=== PATIENT | male | born 1985 | race Caucasian/White ===

== ENCOUNTER 2016-10-21 17:04 | Inpatient (IN) | payer MEDICAID ==
[~2016-10-21] VITALS: Ht 172.7 cm; Wt 66.1 kg
[~2016-10-21 17:04] MED LIST: FAMO20TA7 PO; FOLI-17 PO; HYDR-3240 PO; MULT-6 PO; OMEP40CA3 PO; THIA100T6 PO
[2016-10-21] MEDS ORDERED: ONDANSETRON 2MG/ML, 2ML IVPush ONE (18:00)
[2016-10-21] MEDS ORDERED: FAMOTIDINE 20 MG/2 ML IVP ONE (18:00)
[2016-10-21] MEDS ORDERED: SODIUM CHLORIDE 0.9% 1,000 ML IV ONE ×2 (18:07→20:33)
[2016-10-21] MEDS ORDERED: SODIUM CHLORIDE 0.9% 1,000ML IVBOLUS ONE (18:30)
[2016-10-21] MEDS ORDERED: SODIUM CHLORIDE FLUSH 10ML SYR IVF ONE (18:30)
[2016-10-21] MEDS ORDERED: ONDANSETRON 2MG/ML, 2ML ONE (18:34)
[2016-10-21] MEDS ORDERED: FAMOTIDINE 20 MG/2 ML ONE (18:35)
[2016-10-21 18:46] LABS: HEMOGLOBIN 15.1 g/dL (13.7-18.0)
[2016-10-21 18:57] LABS: ASPARTATE AMINO TRANSFERASE 59 U/L (15-37); BLOOD UREA NITROGEN 13 mg/dL (7-18)
[2016-10-21] MEDS ORDERED: SERT100T PO (19:06)
[2016-10-21] MEDS ORDERED: HYDROmorphone 1 MG/ML, 1ML ONE ×2 (19:20→20:41)
[2016-10-21 19:22] LABS: DIFF TOTAL CELLS COUNTED 100 CELL DIFF
[2016-10-21] MEDS ORDERED: LORazepam 2 MG/ML, 1ML ONE (19:22)
[2016-10-21 19:24] LABS: VERIFY COUNTS? YES
[2016-10-21] MEDS: HYDROmorphone 1 MG/ML, 1ML IVPush PRN ×2 (19:27→20:43)
[2016-10-21] MEDS ORDERED: LORazepam 2 MG/ML, 1ML IVPush PRN ×2 (19:30→21:00)
[2016-10-21] MEDS ORDERED: THIAMINE 100 MG in SODIUM CHLORIDE 0.9% 50 ML IVPB ONE (19:30)
[2016-10-21] MEDS ORDERED: OMNIPAQUE 350 MG/ML, 100ML BOTTLE ONE (20:05)
[2016-10-21] MEDS: SODIUM CHLORIDE 0.9% 1,000 ML IV SCH (20:51)
[2016-10-21] MEDS ORDERED: BISACODYL 10 MG SUPP PR PRN (21:00)
[2016-10-21] MEDS ORDERED: HYDROmorphone 1 MG/ML, 1ML IVPush PRN (21:00)
[2016-10-21] MEDS ORDERED: SODIUM CHLORIDE FLUSH 10ML SYR IVF PRN (21:00)
[2016-10-21] MEDS ORDERED: ONDANSETRON 2MG/ML, 2ML IVPush PRN (21:00)
[2016-10-21 23:10] VITALS: BP 159/96
[2016-10-21] MEDS: MORPHINE SULFATE 4 MG/ML, 1ML IVPush PRN (23:33)
[2016-10-21] MEDS: POTASSIUM CHLORIDE 20 MEQ, MAGNESIUM SULFATE 2 GM, THIAMINE 100 MG, MVI ADULT 10 ML, FO... IV SCH (23:33)
[2016-10-22 01:13] VITALS: BP 132/91
[2016-10-22] MEDS: ONDANSETRON 2MG/ML, 2ML IVP PRN ×4 (01:27→20:53)
[2016-10-22] MEDS: MORPHINE SULFATE 4 MG/ML, 1ML IVPush PRN ×7 (01:27→23:07)
[2016-10-22] MEDS: HEPARIN 5,000 UNITS/ML, 1ML SQ SCH ×3 (01:28→20:03)
[2016-10-22] MEDS: NICOTINE 14MG/24 HR PATCH.TD24 TD SCH ×2 (01:30→20:55)
[2016-10-22] MEDS: SODIUM CHLORIDE 0.9% 1,000 ML IV SCH ×3 (02:34→20:53)
[2016-10-22 04:26] LABS: HEMOGLOBIN 15.5 g/dL (13.7-18.0)
[2016-10-22 04:38] LABS: BLOOD UREA NITROGEN 12 mg/dL (7-18)
[2016-10-22 04:42] LABS: ASPARTATE AMINO TRANSFERASE 51 U/L (15-37)
[2016-10-22] MEDS: LORazepam 2 MG/ML, 1ML IVPush PRN ×2 (08:09→21:31)
[2016-10-22 08:58] VITALS: BP 155/112
[2016-10-22 13:40] VITALS: BP 142/104
[2016-10-22 17:30] VITALS: BP 110/69
[2016-10-22 17:59] VITALS: BP 117/71
[2016-10-22 18:52] VITALS: BP 124/85
[2016-10-22] MEDS: POTASSIUM CHLORIDE 20 MEQ, MAGNESIUM SULFATE 2 GM, THIAMINE 100 MG, MVI ADULT 10 ML, FO... IV SCH (23:08)
[2016-10-23 00:54] VITALS: BP 140/91
[2016-10-23] MEDS: MORPHINE SULFATE 4 MG/ML, 1ML IVPush PRN ×5 (01:58→20:51)
[2016-10-23] MEDS: LORazepam 2 MG/ML, 1ML IVPush PRN ×4 (03:12→20:50)
[2016-10-23] MEDS: ONDANSETRON 2MG/ML, 2ML IVP PRN ×2 (03:12→13:36)
[2016-10-23] MEDS: SODIUM CHLORIDE 0.9% 1,000 ML IV SCH ×3 (03:31→20:47)
[2016-10-23 05:37] LABS: HEMOGLOBIN 15.6 g/dL (13.7-18.0)
[2016-10-23 06:05] LABS: ASPARTATE AMINO TRANSFERASE 49 U/L (15-37); BLOOD UREA NITROGEN 16 mg/dL (7-18)
[2016-10-23] MEDS: HEPARIN 5,000 UNITS/ML, 1ML SQ SCH ×3 (06:25→20:48)
[2016-10-23 08:33] VITALS: BP 136/96
[2016-10-23] MEDS: POTASSIUM CHLORIDE 20 MEQ, MAGNESIUM SULFATE 2 GM, THIAMINE 100 MG, MVI ADULT 10 ML, FO... IV SCH (09:16)
[2016-10-23 15:45] VITALS: BP 132/94
[2016-10-23 20:13] VITALS: BP 134/88
[2016-10-23] MEDS: NICOTINE 14MG/24 HR PATCH.TD24 TD SCH (20:50)
[2016-10-24] MEDS: POTASSIUM CHLORIDE 20 MEQ, MAGNESIUM SULFATE 2 GM, THIAMINE 100 MG, MVI ADULT 10 ML, FO... IV SCH (00:21)
[2016-10-24] MEDS: MORPHINE SULFATE 4 MG/ML, 1ML IVPush PRN ×3 (00:21→07:47)
[2016-10-24] MEDS: LORazepam 2 MG/ML, 1ML IVPush PRN ×2 (00:21→04:02)
[2016-10-24 03:02] VITALS: BP 115/76
[2016-10-24 04:52] LABS: HEMOGLOBIN 12.3 g/dL (13.7-18.0)
[2016-10-24 05:16] LABS: ASPARTATE AMINO TRANSFERASE 68 U/L (15-37); BLOOD UREA NITROGEN 14 mg/dL (7-18)
[2016-10-24] MEDS: HEPARIN 5,000 UNITS/ML, 1ML SQ SCH ×3 (06:29→21:08)
[2016-10-24 08:02] VITALS: BP 129/81
[2016-10-24] MEDS: SODIUM CHLORIDE 0.9% 1,000 ML IV SCH (11:59)
[2016-10-24] MEDS: LACTATED RINGERS 1,000 ML IV SCH (13:40)
[2016-10-24] MEDS: HYDROcodone/APAP 5/325 TABLET PO PRN ×3 (13:43→20:37)
[2016-10-24 14:01] VITALS: BP 133/79
[2016-10-24] MEDS ORDERED: OMNIPAQUE 350 MG/ML, 100ML BOTTLE ONE (18:05)
[2016-10-24] MEDS: ONDANSETRON 2MG/ML, 2ML IVP PRN (18:31)
[2016-10-24 19:23] VITALS: BP 132/78
[2016-10-24] MEDS: NICOTINE 14MG/24 HR PATCH.TD24 TD SCH (20:37)
[2016-10-24] MEDS ORDERED: POTASSIUM CHLORIDE 20 MEQ, MAGNESIUM SULFATE 2 GM, THIAMINE 100 MG, MVI ADULT 10 ML, FO... IV SCH (23:00)
[2016-10-25] MEDS: LACTATED RINGERS 1,000 ML IV SCH ×4 (00:30→23:03)
[2016-10-25] MEDS: HYDROcodone/APAP 5/325 TABLET PO PRN ×4 (00:44→20:00)
[2016-10-25 02:20] VITALS: BP 110/69
[2016-10-25] MEDS: HEPARIN 5,000 UNITS/ML, 1ML SQ SCH ×3 (05:25→21:21)
[2016-10-25 06:18] LABS: HEMOGLOBIN 10.6 g/dL (13.7-18.0)
[2016-10-25 06:32] LABS: ASPARTATE AMINO TRANSFERASE 81 U/L (15-37); BLOOD UREA NITROGEN 9 mg/dL (7-18)
[2016-10-25 06:40] VITALS: BP 150/85
[2016-10-25 07:27] LABS: DIFF TOTAL CELLS COUNTED 100 CELL DIFF
[2016-10-25 07:29] LABS: VERIFY COUNTS? YES
[2016-10-25] MEDS: MORPHINE SULFATE 4 MG/ML, 1ML IVPush PRN ×2 (09:10→16:25)
[2016-10-25] MEDS ORDERED: LORazepam 1MG TABLET PO PRN (12:00)
[2016-10-25 12:59] VITALS: BP 146/84
[2016-10-25 20:16] VITALS: BP 128/80
[2016-10-25] MEDS: NICOTINE 14MG/24 HR PATCH.TD24 TD SCH (21:21)
[2016-10-26] MEDS: HYDROcodone/APAP 5/325 TABLET PO PRN ×3 (00:20→11:12)
[2016-10-26 02:43] VITALS: BP 145/76
[2016-10-26] MEDS: HEPARIN 5,000 UNITS/ML, 1ML SQ SCH (05:59)
[2016-10-26 06:45] VITALS: BP 126/77
[2016-10-26] MEDS: LACTATED RINGERS 1,000 ML IV SCH (08:47)
[2016-10-26] MEDS ORDERED: LORA-446 PO (10:23)
[2016-10-26] MEDS ORDERED: ONDA4TAB10 PO (10:23)
[2016-10-26] MEDS ORDERED: HYDR-3240 PO (10:23)
[2016-10-26 11:15] VITALS: BP 158/78
[2016-10-26] MEDS ORDERED: FLU VACC QS2016-17 (36MOS+)UP/PF 0.5 ML IM-VACC ONE (12:30)
== END 2016-10-26 13:32 | disposition home or self-care (01) | DRG 438 ==
LOC: ED 21:59 → EDIP 22:05 → 4NOR 22:33 → DCLOUNGE 10-26 13:17
PROC: 0T9B70Z Drainage of Bladder with Drainage Device, Via Natural or Artificial Opening (ICD-10-PCS; principal; 2016-10-21)
DX: K85.20 Alcohol induced acute pancreatitis without necrosis or infection (principal); E43 Unspecified severe protein-calorie malnutrition; F10.239 Alcohol dependence with withdrawal, unspecified; E87.1 Hypo-osmolality and hyponatremia; R65.10 Systemic inflammatory response syndrome (SIRS) of non-infectious origin without acute organ dysfunction; K70.10 Alcoholic hepatitis without ascites; Z82.49 Family history of ischemic heart disease and other diseases of the circulatory system; F32.9 Major depressive disorder, single episode, unspecified; K59.00 Constipation, unspecified; D64.9 Anemia, unspecified; Z68.22 Body mass index [BMI] 22.0-22.9, adult; Z72.0 Tobacco use
CPT/HCPCS: 36415; 71010; 71275; 74177; 76700; 80053; 80307; 81003; 83605; 83690; 84478; 85025; 87324; 90686; 93005; 96361; 96365; 96375; 96376; J1170; J1644; J2405; J3411; J3475; J3480; J7042; Q9967; J2060; J7030; J7120; S0028

== ENCOUNTER 2017-07-02 16:09 | Inpatient (IN) | payer MEDICAID, OTHER ==
[~2017-07-02] VITALS: Ht 175.3 cm; Wt 53.7 kg
[~2017-07-02 16:09] MED LIST changes: +LORA-446 PO; +ONDA4TAB10 PO; +SERT100T PO
[2017-07-02] MEDS ORDERED: SODIUM CHLORIDE 0.9% 1,000 ML IV ONE ×2 (18:11→19:26)
[2017-07-02] MEDS ORDERED: PANTOPRAZOLE 80 MG in SODIUM CHLORIDE 0.9% 50 ML IVPB ONE (18:11)
[2017-07-02] MEDS ORDERED: morphine SULFATE 10 MG/ML, 1ML ONE ×2 (18:16→19:23)
[2017-07-02] MEDS ORDERED: PANTOPRAZOLE 40 MG IV ONE (18:16)
[2017-07-02] MEDS ORDERED: ONDANSETRON 2MG/ML, 2ML ONE (18:16)
[2017-07-02] MEDS: MORPHINE SULFATE 4 MG/ML, 1ML IVPush PRN ×2 (18:19→19:25)
[2017-07-02] MEDS ORDERED: ONDANSETRON 2MG/ML, 2ML IVPush ONE (18:30)
[2017-07-02] MEDS ORDERED: SODIUM CHLORIDE 0.9% 1,000ML IVBOLUS ONE ×2 (18:30→19:30)
[2017-07-02] MEDS ORDERED: SODIUM CHLORIDE FLUSH 10ML SYR IVF ONE (18:30)
[2017-07-02 18:37] LABS: HEMOGLOBIN 14.7 g/dL (13.7-18.0); WHITE BLOOD COUNT 12.5 x10^3/uL (3.4-10)
[2017-07-02 18:48] LABS: ASPARTATE AMINO TRANSFERASE 35 U/L (15-37); BLOOD UREA NITROGEN 14 mg/dL (7-18)
[2017-07-02] MEDS ORDERED: SODIUM CHLORIDE FLUSH 10ML SYR IVF PRN (19:30)
[2017-07-02] MEDS ORDERED: LORazepam 1MG TABLET PO PRN ×2 (20:00)
[2017-07-02] MEDS ORDERED: LORazepam 0.5MG TABLET PO PRN (20:00)
[2017-07-02] MEDS ORDERED: ACETAMINOPHEN 325 MG TABLET PO PRN (20:00)
[2017-07-02] MEDS ORDERED: ONDANSETRON 2MG/ML, 2ML IVPush PRN (20:00)
[2017-07-02] MEDS ORDERED: LORazepam 2 MG/ML, 1ML IV PRN ×3 (20:00)
[2017-07-02] MEDS ORDERED: POLYETHYLENE GLYCOL 17 GM PACKET PO PRN (20:00)
[2017-07-02] MEDS ORDERED: DOCUSATE 100 MG CAPSULE PO PRN (20:00)
[2017-07-02] MEDS ORDERED: CEFTRIAXONE PMX 1GM/50ML 50 ML IV SCH (20:30)
[2017-07-02] MEDS: HYDROmorphone 2 MG/ML, 1ML IVPush PRN (20:52)
[2017-07-02 20:54] VITALS: BP 131/73
[2017-07-02] MEDS ORDERED: FAMOTIDINE 20 MG TABLET PO SCH (21:00)
[2017-07-02] MEDS: ENOXAPARIN 40 MG/0.4 ML SQ SCH (21:00)
[2017-07-02] MEDS: POTASSIUM CHLORIDE 20 MEQ in SODIUM CHLORIDE 0.9% 1,000 ML IV SCH (22:59)
[2017-07-03] MEDS: METRONIDAZOLE PMX 500MG/100ML 100 ML IV SCH ×2 (00:01→07:30)
[2017-07-03] MEDS: HYDROmorphone 2 MG/ML, 1ML IVPush PRN ×9 (00:01→19:33)
[2017-07-03 00:22] VITALS: BP 118/72
[2017-07-03 04:02] LABS: HEMATOCRIT 33.5 % (39.2-51.8); HEMOGLOBIN 11.4 g/dL (13.7-18.0); WHITE BLOOD COUNT 10.9 x10^3/uL (3.4-10)
[2017-07-03 04:09] LABS: BLOOD UREA NITROGEN 15 mg/dL (7-18)
[2017-07-03 04:16] LABS: ASPARTATE AMINO TRANSFERASE 25 U/L (15-37)
[2017-07-03] MEDS: POTASSIUM CHLORIDE 20 MEQ in SODIUM CHLORIDE 0.9% 1,000 ML IV SCH (07:00)
[2017-07-03] MEDS: SENNA/DOCUSATE TABLET PO SCH ×2 (07:51→09:00)
[2017-07-03] MEDS: OXYcodone IR 5MG TABLET PO PRN (07:51)
[2017-07-03] MEDS ORDERED: LACTATED RINGERS 1,000 ML IV SCH (08:00)
[2017-07-03 08:39] VITALS: BP 142/83
[2017-07-03] MEDS ORDERED: THIAMINE 100MG TABLET PO SCH (09:00)
[2017-07-03] MEDS ORDERED: FOLIC ACID 1 MG TABLET PO SCH (09:00)
[2017-07-03] MEDS ORDERED: MULTIVITAMIN 1 TABLET PO SCH (09:00)
[2017-07-03] MEDS ORDERED: HYDROmorphone 1 MG/ML, 1ML ONE ×2 (09:28→11:55)
[2017-07-03] MEDS: POTASSIUM CHLORIDE 20 MEQ, MAGNESIUM SULFATE 1 GM, MVI ADULT 10 ML, THIAMINE 100 MG, FO... IV SCH (10:09)
[2017-07-03 14:00] VITALS: BP 138/82
[2017-07-03] MEDS: POTASSIUM CHLORIDE 20 MEQ in LACTATED RINGERS 1,000 ML IV SCH (19:33)
[2017-07-03 19:52] VITALS: BP 128/76
[2017-07-03] MEDS: ENOXAPARIN 40 MG/0.4 ML SQ SCH (21:00)
[2017-07-04] MEDS: HYDROmorphone 2 MG/ML, 1ML IVPush PRN ×5 (01:44→21:42)
[2017-07-04 01:50] VITALS: BP 144/82
[2017-07-04] MEDS: POTASSIUM CHLORIDE 20 MEQ in LACTATED RINGERS 1,000 ML IV SCH ×3 (02:38→18:24)
[2017-07-04 05:24] LABS: HEMATOCRIT 32.4 % (39.2-51.8); HEMOGLOBIN 11.1 g/dL (13.7-18.0); WHITE BLOOD COUNT 7.9 x10^3/uL (3.4-10)
[2017-07-04 05:26] LABS: BLOOD UREA NITROGEN 13 mg/dL (7-18)
[2017-07-04 05:34] LABS: ASPARTATE AMINO TRANSFERASE 20 U/L (15-37)
[2017-07-04 08:00] VITALS: BP 135/80
[2017-07-04] MEDS: SENNA/DOCUSATE TABLET PO SCH (08:56)
[2017-07-04] MEDS: POTASSIUM CHLORIDE 20 MEQ, MAGNESIUM SULFATE 1 GM, MVI ADULT 10 ML, THIAMINE 100 MG, FO... IV SCH (10:11)
[2017-07-04] MEDS: LORazepam 2 MG/ML, 1ML IVPush PRN ×2 (10:52→23:19)
[2017-07-04 14:00] VITALS: BP 108/72
[2017-07-04 19:16] VITALS: BP 129/83
[2017-07-04] MEDS: ENOXAPARIN 40 MG/0.4 ML SQ SCH (21:00)
[2017-07-05 01:38] VITALS: BP 129/79
[2017-07-05] MEDS: POTASSIUM CHLORIDE 20 MEQ in LACTATED RINGERS 1,000 ML IV SCH ×3 (02:26→19:47)
[2017-07-05] MEDS: HYDROmorphone 2 MG/ML, 1ML IVPush PRN ×8 (05:11→23:46)
[2017-07-05 05:31] LABS: HEMATOCRIT 32.1 % (39.2-51.8); HEMOGLOBIN 10.9 g/dL (13.7-18.0); WHITE BLOOD COUNT 7.5 x10^3/uL (3.4-10)
[2017-07-05 05:39] LABS: ASPARTATE AMINO TRANSFERASE 15 U/L (15-37); BLOOD UREA NITROGEN 12 mg/dL (7-18)
[2017-07-05 06:35] VITALS: BP 120/77
[2017-07-05] MEDS: SODIUM CHLORIDE FLUSH 10ML SYR IVF SCH ×2 (08:59→20:01)
[2017-07-05] MEDS: SENNA/DOCUSATE TABLET PO SCH (08:59)
[2017-07-05] MEDS ORDERED: DEXTROSE 4 GM TAB.CHEW PO PRN (09:00)
[2017-07-05] MEDS ORDERED: GLUCAGON 1 MG IM PRN (09:00)
[2017-07-05] MEDS ORDERED: DEXTROSE 50%, 50ML SYRINGE IVPush PRN (09:00)
[2017-07-05] MEDS: POTASSIUM CHLORIDE 20 MEQ, MAGNESIUM SULFATE 1 GM, MVI ADULT 10 ML, THIAMINE 100 MG, FO... IV SCH (10:30)
[2017-07-05 12:45] VITALS: BP 147/89
[2017-07-05] MEDS: LORazepam 2 MG/ML, 1ML IVPush PRN (18:47)
[2017-07-05 19:28] VITALS: BP 127/83
[2017-07-05] MEDS: ENOXAPARIN 40 MG/0.4 ML SQ SCH (20:01)
[2017-07-06 01:01] VITALS: BP 131/80
[2017-07-06] MEDS: HYDROmorphone 2 MG/ML, 1ML IVPush PRN ×10 (02:17→21:56)
[2017-07-06] MEDS: POTASSIUM CHLORIDE 20 MEQ in LACTATED RINGERS 1,000 ML IV SCH ×4 (02:17→23:44)
[2017-07-06 06:14] LABS: ASPARTATE AMINO TRANSFERASE 15 U/L (15-37); BLOOD UREA NITROGEN 10 mg/dL (7-18)
[2017-07-06 06:33] VITALS: BP 144/93
[2017-07-06] MEDS: SENNA/DOCUSATE TABLET PO SCH (07:25)
[2017-07-06] MEDS: SODIUM CHLORIDE FLUSH 10ML SYR IVF SCH ×2 (07:25→20:43)
[2017-07-06] MEDS: POTASSIUM CHLORIDE 20 MEQ, MAGNESIUM SULFATE 1 GM, MVI ADULT 10 ML, THIAMINE 100 MG, FO... IV SCH (08:48)
[2017-07-06 12:06] VITALS: BP 146/91
[2017-07-06] MEDS: KETOROLAC 30 MG/1 ML IVPush SCH ×2 (15:05→19:45)
[2017-07-06] MEDS: FAMOTIDINE 20 MG/2 ML IVPush SCH (19:45)
[2017-07-06 20:21] VITALS: BP 141/93
[2017-07-07] MEDS: HYDROmorphone 2 MG/ML, 1ML IVPush PRN ×11 (00:07→23:11)
[2017-07-07 01:16] VITALS: BP 116/78
[2017-07-07] MEDS: KETOROLAC 30 MG/1 ML IVPush SCH ×4 (02:06→21:31)
[2017-07-07 05:25] LABS: BLOOD UREA NITROGEN 5 mg/dL (7-18)
[2017-07-07 05:28] LABS: ASPARTATE AMINO TRANSFERASE 9 U/L (15-37)
[2017-07-07 06:33] VITALS: BP 114/65
[2017-07-07] MEDS: POTASSIUM CHLORIDE 20 MEQ in LACTATED RINGERS 1,000 ML IV SCH ×2 (08:07→13:14)
[2017-07-07] MEDS: FAMOTIDINE 20 MG/2 ML IVPush SCH ×2 (08:29→21:31)
[2017-07-07] MEDS: SODIUM CHLORIDE FLUSH 10ML SYR IVF SCH ×2 (08:29→21:31)
[2017-07-07] MEDS: SENNA/DOCUSATE TABLET PO SCH (08:30)
[2017-07-07 12:09] VITALS: BP 139/90
[2017-07-07] MEDS: POTASSIUM CHLORIDE 20 MEQ, MAGNESIUM SULFATE 1 GM, MVI ADULT 10 ML, THIAMINE 100 MG, FO... IV SCH (15:58)
[2017-07-07 20:57] VITALS: BP 117/74
[2017-07-08 00:10] VITALS: BP 122/81
[2017-07-08] MEDS: POTASSIUM CHLORIDE 20 MEQ in LACTATED RINGERS 1,000 ML IV SCH ×4 (01:26→21:52)
[2017-07-08] MEDS: HYDROmorphone 2 MG/ML, 1ML IVPush PRN ×8 (01:26→21:53)
[2017-07-08] MEDS: OXYcodone IR 5MG TABLET PO PRN ×4 (03:06→21:52)
[2017-07-08 05:58] VITALS: BP 118/70
[2017-07-08 06:15] LABS: ASPARTATE AMINO TRANSFERASE 12 U/L (15-37); BLOOD UREA NITROGEN 3 mg/dL (7-18)
[2017-07-08 08:00] VITALS: BP 122/81
[2017-07-08] MEDS: SODIUM CHLORIDE FLUSH 10ML SYR IVF SCH ×2 (09:00→21:54)
[2017-07-08] MEDS: FAMOTIDINE 20 MG/2 ML IVPush SCH ×2 (09:27→21:52)
[2017-07-08] MEDS: SENNA/DOCUSATE TABLET PO SCH (09:28)
[2017-07-08] MEDS: POTASSIUM CHLORIDE 20 MEQ, MAGNESIUM SULFATE 1 GM, MVI ADULT 10 ML, THIAMINE 100 MG, FO... IV SCH (12:58)
[2017-07-08 14:00] VITALS: BP 122/81
[2017-07-08 21:29] VITALS: BP 125/72
[2017-07-09] MEDS: HYDROmorphone 2 MG/ML, 1ML IVPush PRN ×5 (00:08→09:02)
[2017-07-09 00:09] VITALS: BP 118/74
[2017-07-09] MEDS: OXYcodone IR 5MG TABLET PO PRN ×5 (02:06→23:27)
[2017-07-09] MEDS: POTASSIUM CHLORIDE 20 MEQ in LACTATED RINGERS 1,000 ML IV SCH (06:14)
[2017-07-09 06:40] VITALS: BP 103/67
[2017-07-09 06:50] LABS: ASPARTATE AMINO TRANSFERASE 10 U/L (15-37); BLOOD UREA NITROGEN 3 mg/dL (7-18)
[2017-07-09] MEDS ORDERED: HYDROmorphone 2 MG/ML, 1ML IVPush PRN (09:30)
[2017-07-09] MEDS: FAMOTIDINE 20 MG/2 ML IVPush SCH ×2 (09:43→21:47)
[2017-07-09] MEDS: SENNA/DOCUSATE TABLET PO SCH (09:43)
[2017-07-09] MEDS: KETOROLAC 30 MG/1 ML IVPush SCH ×3 (09:43→21:47)
[2017-07-09] MEDS: SODIUM CHLORIDE FLUSH 10ML SYR IVF SCH ×2 (09:52→21:47)
[2017-07-09 13:36] VITALS: BP 105/69
[2017-07-09 20:59] VITALS: BP 111/70
[2017-07-09 21:32] VITALS: BP 126/74
[2017-07-10] MEDS: KETOROLAC 30 MG/1 ML IVPush SCH (03:30)
[2017-07-10 04:17] VITALS: BP 111/85
[2017-07-10 06:35] VITALS: BP 119/69
[2017-07-10] MEDS: OXYcodone IR 5MG TABLET PO PRN ×3 (08:57→18:35)
[2017-07-10] MEDS: SODIUM CHLORIDE FLUSH 10ML SYR IVF SCH ×2 (09:00→21:06)
[2017-07-10] MEDS: SENNA/DOCUSATE TABLET PO SCH (09:33)
[2017-07-10] MEDS: FAMOTIDINE 20 MG/2 ML IVPush SCH ×2 (09:33→21:06)
[2017-07-10 14:29] VITALS: BP 121/71
[2017-07-10 19:17] VITALS: BP 122/72
[2017-07-10] MEDS: SUCRALFATE 1 GM/10 ML UDC PO SCH (21:06)
[2017-07-11 01:10] VITALS: BP 126/78
[2017-07-11 06:42] VITALS: BP 119/72
[2017-07-11] MEDS: SODIUM CHLORIDE FLUSH 10ML SYR IVF SCH (07:37)
[2017-07-11] MEDS: FAMOTIDINE 20 MG/2 ML IVPush SCH (07:37)
[2017-07-11] MEDS: SENNA/DOCUSATE TABLET PO SCH (07:37)
[2017-07-11] MEDS: SUCRALFATE 1 GM/10 ML UDC PO SCH ×2 (07:37→10:52)
[2017-07-11] MEDS: OXYcodone IR 5MG TABLET PO PRN (10:58)
[2017-07-11] MEDS ORDERED: ACET325T14 PO (13:03)
[2017-07-11] MEDS ORDERED: OXYC5TAB3 PO (13:03)
[2017-07-11] MEDS ORDERED: MORP15TA3 PO (13:03)
== END 2017-07-11 13:38 | disposition home or self-care (01) | DRG 871 ==
LOC: ED 19:49 → SUATTDRO 19:52 → EDIP 20:04 → 3NE 20:15
PROVIDERS: ADMIT Family Medicine; ATTEND Family Medicine
DX: A41.9 Sepsis, unspecified organism (principal); K85.20 Alcohol induced acute pancreatitis without necrosis or infection; F10.221 Alcohol dependence with intoxication delirium; K29.01 Acute gastritis with bleeding; K29.21 Alcoholic gastritis with bleeding; K70.10 Alcoholic hepatitis without ascites; E87.6 Hypokalemia
CPT/HCPCS: 36415; 74150; 74176; 76700; 80053; 80061; 80307; 81001; 82140; 82150; 82962; 83605; 83690; 83735; 85025; 85610; 85730; 86677; 86850; 86900; 93005; 96361; 96365; 96375; J0696; J1170; J1650; J1885; J2405; J3411; J3475; J3480; C9113; G0479; J1610; J2060; J7030; J7120; S0028